=== PATIENT | male | born 1965 | race Caucasian/White ===

== ENCOUNTER → 2024-06-14 | Outpatient (REF) | payer OTHER | LOC: M SFHCDERM 17:36 | PROVIDERS: ATTEND Physician Assistant | DX: D49.2 Neoplasm of unspecified behavior of bone, soft tissue, and skin (principal) ==

== ENCOUNTER → 2025-07-24 | Outpatient (REF) | payer OTHER | LOC: M SFHCDERM 10:35 | PROVIDERS: ATTEND Dermatology | DX: D23.62 Other benign neoplasm of skin of left upper limb, including shoulder (principal) ==